=== PATIENT | female | born 1960 | race Caucasian/White ===

== ENCOUNTER → 2021-04-24 11:27 | Outpatient (CLI) | payer OTHER, SELFPAY ==
--- NOTE | ~2021-04-24 | CT_ITS ---
EXAMINATION: CT cervical spine wo [facility] EXAM DATE: 04/24/2021 11:43 INDICATION: Radiculopathy, cervical region, Spondylolysis. TECHNIQUE: Spiral CT of the cervical spine was performed without contrast. Axial images were reviewe d. Coronal and sagittal reformatted images cervical spine were also reviewed. The dose-length produc t (DLP) for this examination was 259.23 mGy-cm. The exposure was tailored according to patient size (auto mA exposure control), and iterative reconstruction (ASIR) was used as additional dose reduction technique. There is no prior study for comparison. FINDINGS: The C4-6 vertebral bodies and facet joints are fused. There is moderate to severe disc dis ease at C6-7, mild to moderate at C4-5 with 2 mm anterolisthesis. There are no acute fractures identi fied. The odontoid process is intact. The lateral masses of C1 line up with C2. Prevertebral soft ti ssue and pre-dens space are within normal limits. Level by level evaluation: C2-C3: There is a mild diffuse disc bulge. Uncovertebral joint arthropathy: Mild to moderate right, mild left. Facet joint arthropathy: Bulky but fused right, mild to moderate left. Neural foraminal stenosis: Mild to moderate right. Central canal stenosis: No stenosis. C3-C4: There is a mild diffuse disc bulge. Uncovertebral joint arthropathy: Moderate left, mild to moderate right. Facet joint arthropathy: Severe left, mild to moderate right. Neural foraminal stenosis: Severe left, mild to moderate right. Central canal stenosis: Mild. C4-C5: This level is fused. Uncovertebral joint arthropathy: Fused. Facet joint arthropathy: Fused. Neural foraminal stenosis: Moderate left. Central canal stenosis: No stenosis. C5-C6: This level is fused. Uncovertebral joint arthropathy: Fused. Facet joint arthropathy: Fused. Neural foraminal stenosis: No stenosis. Central canal stenosis: No stenosis. C6-C7: There is a moderate diffuse disc bulge. Uncovertebral joint arthropathy: Moderate to severe left, moderate right. Facet joint arthropathy: Mild to moderate bilateral. Neural foraminal stenosis: Moderate to severe left, mild to moderate right. Central canal stenosis: Probably mild to moderate. C7-T1: There is a mild diffuse disc bulge. Uncovertebral joint arthropathy: Mild. Facet joint arthropathy: Moderate to severe bilateral. Neural foraminal stenosis: Mild bilateral. Central canal stenosis: No stenosis. IMPRESSION: 1. C4-6 fusion. 2. C3-4 severe left neural foraminal stenosis. 3. Less spondylosis other levels. Reviewed, dictated and finalized at location B. US GRINDER
== END ==
PROVIDERS: PCP Internal Medicine Gastroenterology
DX: M43.02 Spondylolysis, cervical region (principal); Z98.1 Arthrodesis status; M47.22 Other spondylosis with radiculopathy, cervical region
CPT/HCPCS: 72125

== ENCOUNTER 2022-04-05 10:49 | Outpatient (CLI) | payer OTHER, SELFPAY ==
[2022-04-05 11:57] LABS: Basophils Absolute Auto 0.1 K/mm3 (0.0-0.1); Basophils Percent Auto 0.6 % (0.2-1.2); Eosinophils Absolute Auto 0.1 K/mm3 (0-0.3); Eosinophils Percent Auto 0.9 % (0-4.4); Hemoglobin 14.4 g/dL (12.0-15.0); Immature Granulocyte Absolute 0.02 K/mm3 (0.00-0.031); Immature Granulocyte Percent A 0.2 % (0-0.5); Lymphocytes Percent Auto 26.1 % (18.3-44.2); Mean Corpuscular HGB Conc 33.5 g/dl (32-36); Mean Corpuscular Hemoglobin 28.6 pg (26-34); Mean Corpuscular Volume 85.3 fl (80-100); Mean Platelet Volume 9.9 fl (7.4-10.4); Monocytes Absolute Auto 0.5 K/mm3 (0.1-0.6); Monocytes Percent Auto 6.2 % (2.6-8.5); Neutrophils Absolute Auto 5.3 K/mm3 (1.3-6.7); Platelet Count Result 281 k/mm3 (150-375); Red Blood Count 5.04 M/mm3 (4.2-5.4); Red Cell Distribution Width 12.6 % (11.5-14.5); White Blood Count 8.1 K/mm3 (4.5-10.0)
[2022-04-05 12:09] LABS: Hemoglobin A1C 5.5 % (<5.7)
[2022-04-05 12:12] LABS: Alanine Aminotransferase 30 U/L (6-35); Albumin Level 4.8 g/dL (3.5-5.1); Alkaline Phosphatase 92 U/L (38-126); Anion Gap 13 mmol/L (8-16); Aspartate Amino Transferase 28 U/L (14-36); Bilirubin,Total 1.2 mg/dL (0.2-1.3); Blood Urea Nitrogen 11 mg/dL (7-17); Calcium 9.7 mg/dL (8.4-10.2); Carbon Dioxide 25 mmol/L (22-30); Chloride 101 mmol/L (98-107); Cholesterol 243 mg/dL (0-200); Estimated Glomerular Filt Rate > 60; Glucose 93 mg/dL (65-110); HDL Direct 60 mg/dL; Potassium 5.1 mmol/L (3.4-5.0); Sodium 139 mmol/L (137-145); Triglycerides 107 mg/dL (<150)
[2022-04-05 12:21] LABS: NT Pro B Type Natriuretic Pept 169 pg/mL (5-100)
[2022-04-05 12:23] LABS: LDL Cholesterol Direct 140 mg/dL
[2022-04-05 12:36] LABS: Free T4 Free Thyroxine 2.09 ng/mL (0.78-2.19)
[2022-04-05 12:42] LABS: Thyroid Stimulating Hormone < 0.015 uIU/mL (0.465-4.680)
== END 2022-04-05 10:50 | disposition home or self-care (01) ==
LOC: ANHLAB 10:51
PROVIDERS: PCP Emergency Medicine; Visit Provider Emergency Medicine
DX: I10 Essential (primary) hypertension (principal); E03.9 Hypothyroidism, unspecified; E66.9 Obesity, unspecified; R60.0 Localized edema; Z87.448 Personal history of other diseases of urinary system
CPT/HCPCS: 36415; 80053; 80061; 83036; 83880; 84439; 84443; 85025

== ENCOUNTER 2022-04-08 12:53 | Outpatient (CLI) | payer OTHER, SELFPAY ==
[2022-04-08 15:51] LABS: Creatinine Urine 141.9 mg/dL
[2022-04-08 15:54] LABS: MALB Creatinine Ratio 6.9 mg/g (0-30); Microalbumin Urine Random 9.8 mg/L (0-16.7)
[2022-04-08 21:43] LABS: Appearance Urine Slightly Cloudy (Clear); Bilirubin Urine Negative (Negative); Blood Urine Negative (Negative); Color Urine Yellow (Yellow); Glucose Urine UA Negative (Negative); Ketones Urine Negative (Negative); Leukocyte Esterase Ur Negative LEU/UL (Negative); Nitrate Urine Negative (Negative); Protein Urine Negative (Negative); Specific Grav Ur 1.025 (1.001-1.035); Urobilinogen Urine 0.2 mg/dL (<2.0)
[2022-04-08 21:45] LABS: Add Urine Microscopic? NO
== END 2022-04-08 12:54 | disposition home or self-care (01) ==
PROVIDERS: PCP Emergency Medicine; Visit Provider Emergency Medicine
DX: R80.9 Proteinuria, unspecified (principal)
CPT/HCPCS: 81003; 82043

== ENCOUNTER 2022-04-16 11:33 | Outpatient (CLI) | payer OTHER, SELFPAY ==
--- NOTE | ~2022-04-16 | US_ITS ---
EXAMINATION:US venous doppler LE BI INDICATION:Localized edema TECHNIQUE: Multiple grayscale, color flow and Doppler images of the bilateral lower extremity deep ve nous systems were obtained and reviewed. COMPARISON:No prior studies for comparison. FINDINGS: The common femoral, superficial femoral and popliteal veins demonstrate normal respiratory variation, augmentation and compressibility. Color flow is also seen within the posterior tibial, pe roneal, greater saphenous and profunda veins. IMPRESSION: 1: No lower extremity deep venous thrombosis. Reviewed, dictated and finalized at location A. ER OPERATOR
== END 2022-04-16 11:34 | disposition home or self-care (01) ==
PROVIDERS: PCP Emergency Medicine; Visit Provider Emergency Medicine
DX: R60.0 Localized edema (principal)
CPT/HCPCS: 93970

== ENCOUNTER 2022-04-19 13:47 | Outpatient (CLI) | payer OTHER, SELFPAY ==
[2022-04-19 14:53] LABS: Influenza A QL RT-PCR Negative (Negative); Influenza B QL RT-PCR Negative (Negative); RSV RNA, RT-PCR Negative (Negative); SARS-CoV-2 RNA PCR Negative
== END 2022-04-19 13:48 | disposition home or self-care (01) ==
LOC: ANHLAB 13:48
PROVIDERS: PCP Emergency Medicine; Visit Provider Emergency Medicine
DX: J11.1 Influenza due to unidentified influenza virus with other respiratory manifestations (principal); Z20.822 Contact with and (suspected) exposure to COVID-19
CPT/HCPCS: 87637

== ENCOUNTER 2022-10-21 08:13 | Outpatient (CLI) | payer OTHER, MEDICAID, SELFPAY ==
[2022-10-21 08:37] LABS: Anion Gap 6 mmol/L (8-16); Blood Urea Nitrogen 20 mg/dL (7-17); Carbon Dioxide 30 mmol/L (22-30); Chloride 103 mmol/L (98-107); Estimated Glomerular Filt Rate 56; Glucose 89 mg/dL (65-110); Potassium 3.8 mmol/L (3.4-5.0); Sodium 139 mmol/L (137-145)
[2022-10-21 09:07] LABS: Thyroid Stimulating Hormone < 0.015 uIU/mL (0.465-4.680)
[2022-10-21 09:44] LABS: Free T4 Free Thyroxine 1.81 ng/mL (0.78-2.19)
== END 2022-10-21 08:14 | disposition home or self-care (01) ==
LOC: ANHLAB 08:14
PROVIDERS: PCP Emergency Medicine; Visit Provider Emergency Medicine
DX: E87.5 Hyperkalemia (principal); E03.9 Hypothyroidism, unspecified
CPT/HCPCS: 36415; 80048; 84439; 84443

== ENCOUNTER 2023-01-15 09:43 | Outpatient (CLI) | payer OTHER, SELFPAY ==
[2023-01-15 10:44] LABS: Free T4 Free Thyroxine 1.32 ng/mL (0.78-2.19)
== END 2023-01-15 09:44 | disposition home or self-care (01) ==
PROVIDERS: PCP Emergency Medicine; Visit Provider Emergency Medicine
DX: E03.9 Hypothyroidism, unspecified (principal)
CPT/HCPCS: 36415; 84439; 84443; 84480

== ENCOUNTER 2023-08-25 10:43 | Outpatient (CLI) | payer OTHER, SELFPAY ==
[2023-08-25 13:48] LABS: Basophils Absolute Auto 0.1 K/mm3 (0.0-0.1); Basophils Percent Auto 0.8 % (0.2-1.2); Eosinophils Absolute Auto 0.2 K/mm3 (0-0.3); Eosinophils Percent Auto 1.9 % (0-4.4); Hematocrit 41.1 % (37.0-47.0); Hemoglobin 13.3 g/dL (12.0-15.0); Immature Granulocyte Absolute 0.02 K/mm3 (0.00-0.031); Immature Granulocyte Percent A 0.3 % (0-0.5); Lymphocytes Absolute Auto 2.04 K/mm3 (0.9-3.2); Lymphocytes Percent Auto 25.9 % (18.3-44.2); Mean Corpuscular HGB Conc 32.4 g/dl (32-36); Mean Corpuscular Hemoglobin 29.3 pg (26-34); Mean Corpuscular Volume 90.5 fl (80-100); Mean Platelet Volume 10.3 fl (7.4-10.4); Monocytes Absolute Auto 0.5 K/mm3 (0.1-0.6); Monocytes Percent Auto 6.7 % (2.6-8.5); Neutrophils Absolute Auto 5.1 K/mm3 (1.3-6.7); Neutrophils Percent Auto 64.4 % (45.5-73.1); Platelet Count Result 254 k/mm3 (150-375); Red Blood Count 4.54 M/mm3 (4.2-5.4); Red Cell Distribution Width 12.4 % (11.5-14.5); White Blood Count 7.9 K/mm3 (4.5-10.0)
[2023-08-25 14:11] LABS: Alanine Aminotransferase 23 U/L (6-35); Albumin Level 4.8 g/dL (3.5-5.1); Alkaline Phosphatase 82 U/L (38-126); Anion Gap 4 mmol/L (4-12); Aspartate Amino Transferase 44 U/L (14-36); Bilirubin,Total 1.2 mg/dL (0.2-1.3); Blood Urea Nitrogen 13 mg/dL (7-17); Calcium 9.7 mg/dL (8.4-10.2); Carbon Dioxide 28 mmol/L (22-30); Chloride 104 mmol/L (98-107); Cholesterol 237 mg/dL (0-200); Estimated Glomerular Filt Rate > 60; Glucose 101 mg/dL (65-110); HDL Direct 45 mg/dL; Potassium 4.8 mmol/L (3.4-5.0); Sodium 136 mmol/L (137-145); Triglycerides 173 mg/dL (<150)
[2023-08-25 14:22] LABS: LDL Cholesterol Direct 163 mg/dL
[2023-08-25 19:03] LABS: Appearance Urine Clear (Clear); Bilirubin Urine Negative (Negative); Blood Urine Negative (Negative); Color Urine Yellow (Yellow); Glucose Urine UA Negative (Negative); Ketones Urine Negative (Negative); Leukocyte Esterase Ur Negative LEU/UL (Negative); Nitrate Urine Negative (Negative); Protein Urine Negative (Negative); Specific Grav Ur 1.026 (1.001-1.035); pH Urine 5.5 (5.0-9.0)
[2023-08-25 19:10] LABS: Add Urine Microscopic? NO
[2023-08-25 19:23] LABS: Free T4 Free Thyroxine 1.32 ng/mL (0.78-2.19)
== END 2023-08-25 10:44 | disposition home or self-care (01) ==
PROVIDERS: PCP Emergency Medicine; Visit Provider Emergency Medicine
DX: E66.9 Obesity, unspecified (principal); G25.81 Restless legs syndrome; E03.9 Hypothyroidism, unspecified; I10 Essential (primary) hypertension; Z13.1 Encounter for screening for diabetes mellitus; R10.9 Unspecified abdominal pain
CPT/HCPCS: 36415; 80053; 80061; 81003; 82728; 83036; 84439; 84443; 85025

== ENCOUNTER 2023-09-15 10:42 | Outpatient (CLI) | payer OTHER, SELFPAY ==
--- NOTE | ~2023-09-15 | US_ITS ---
Renal-Bladder ultrasound Clinical History: Abdominal pain Technique: Real-time sonographic imaging of the kidneys and urinary bladder was performed. Findings: The right kidney measures 9.5 cm in length and the left kidney measures 9.5 cm. There is no hydronephrosis or renal calculus identified. Renal cortical echogenicity is within normal limits. No renal mass lesion is identified. The urinary bladder is collapsed, limiting evaluation. Impression: Unremarkable ultrasound of the kidneys. Collapsed urinary bladder limits evaluation. Reviewed, dictated and finalized at location M. Impression: Unremarkable ultrasound of the kidneys. Collapsed urinary bladder limits evalua tion.
== END 2023-09-15 10:43 ==
LOC: GOSHIMG 10:43
PROVIDERS: PCP Emergency Medicine; Visit Provider Emergency Medicine
DX: R10.9 Unspecified abdominal pain (principal)
CPT/HCPCS: 76775

== ENCOUNTER 2025-02-06 11:21 | Outpatient (CLI) | payer OTHER, SELFPAY ==
--- OUTSIDE RECORDS SUMMARY | 2024-08-02 19:00 | XMS_ITS | Continuity of Care Document ---
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 Name Role Phone Administrative, Provider Unavailable Unavail able Allergies, Adverse Reactions, Alerts Substance Reaction Status Criticality No Known Allergies Active No Inform ation Medications Medication Instructions Dosage Effective Dates (start - stop) Status Comments levothyroxine 25 mcg tablet take 1 tablet by oral route every day 25 MCG - Active losartan 25 mg tablet take 1 tablet by o ral route every day 25 MG - Active amlodipine 2.5 mg tablet take 1 tablet b y oral route every day 2.5 MG - Active rosuvastatin 5 mg tablet take 1 tablet b y oral route every day 5 MG - Active gabapentin 300 mg capsule take 1 capsule by oral route 3 times every day 300 MG - Active cyclobenzaprine 5 mg tablet take 1 tablet by oral route 3 times every day 5 MG - Active [place] 5 mg-325 mg tablet take 1 tablet b y oral route every 6 hours as needed for pain - Active Procedures Procedure Date Medical Record Copy Medical Record Copy Per Page Medical Record Copy Medical Record Copy Per Page X-ray exam Cervical 4 Or 5 Views 2023 Independent Medical Examination JÚNIOR Pre Payment Advance Directives Directive Yes / No Effective Date File Name No Information Encounters Encounter Description Practice Location Reason(s) For Visit Diagnoses Date Provider Providers Copied on Encounter [facility], [address] [place] [address], [address] [place] [address], tel:[phone] [facility] No Information 5 Administrative Provider. [address] [place] [address], [address] [place] [address], . tel:[phone] [facility], [address] [place] [address], [id number], tel:[phone] [facility] No Information Administrative Provider. [address] [place] [address], [address] [place] [address], . tel:[phone] Independent Medical Examination JÚNIOR [facility], [address] [place] [address], [address] [place] [address], tel:[phone] [facility] JÚNIOR (chief complaint) Cervicalgia 4 Gerard Orourke. [facility] [address], [address] [place] [address], . tel:[phone] [facility], [address] [place] [address], [id number], tel:[phone] [facility] No Information 4 Gerard Orourke. [address] [place] [address], [address] [place] [address], . tel:[phone] Family History Family Member Type Diagnosis Age At Onset Father Problem (finding) Diabetes Father Problem (finding) Stroke Father Problem (finding) Hypertension Father Problem (finding) Cancer, unknown Mother Problem (finding) Cancer, unknown Father Problem (finding) Heart Disease Mother Problem (finding) Seizures Immunizations Vaccine Date Status Comments Pneumo (2 yrs or older)(PPV) not administered Note: declined ; Arina rce: Source Unspecified influenza, injectable, quadrivalent, (3 years or older) not administered Note: declined ; Arina rce: Source Unspecified Payers Payer name Insurance type Covered republican ID Authoriza tion(s) No Information Social History Type Description Quantity Date Captured Comments Sex Female Smoking Status No Information Chief Complaint And Reason For Visit No Information Reason For Referral Reason For Referral No Information Plan Of Treatment Date Type Action Status Referral Ordered: X-ray exam Cervical 4 Or 5 Views spine, cervical ordered History Of Present Illness Encounter Date Complaint History Of Prese nt Illness JÚNIOR Pillai comes into the office for an JÚNIOR. Functional Status Date Functional Assessmen t No Information Instructions Date Instruction Additional Infor mation No Information Assessments Type Assessment Date No Information Patient Care Teams Name Effective Dates (start - stop) Status Members No Information
--- OUTSIDE RECORDS SUMMARY | 2025-02-06 12:03 | XMS_ITS | Clinical Summary ---
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 This disclosure is being madepursuant to the Care Everywhere program and may not contain all information available regarding this patient. Last updated 18.[facility] Allergies Active Allergy Reactions Criticality Noted Date Comments Lisinopril Cough High 10/23/2008 Medications * Be aware that medications may not be up to date on this document. Alwaysverify current medications with the patient. cyclobenzaprine (FLEXERIL) 10 MG tablet Take 1 Tab by mouth 3 times daily as needed for Muscle Spasms. 90 Tab 5 3 Active hydrocodone-ifrah taminophen (NORCO) 5-325 MG tablet Take 1 Tab by mouth 2 times daily as needed for Pain. 60 Tab 0 3 Active Additional Information Patient taking differently:1 tablet Oral 2 TIMES DAILY PRN, Pain,10-325 mg tablet, Reported on 04/13/2022 levothyroxine (SYNTHROID) 137 MCG tablet Take 1 Tab by mouth daily before breakfast. 30 Tab 11 3 Active Additional Information Patient taking differently: 125 mcgOral DAILY BEFORE BREAKFAST, Reported on 04/13/2022 lisinopril-hydr ochlorothiazide (PRINZIDE; ZESTORETIC) 20-12.5 MG tablet Take 1 Tab by mouth once daily. 90 Tab 0 3 Active amLODIPine (Norvasc) 5 MG tablet Take 1 (one) tablet by mouth once daily 2 Active vitamin D, ergocalciferol, (Drisdol) 1.25 MG (05265 UT) capsule 2 Active gabapentin (Neurontin) 300 MG capsule TAKE 1 CAPSULE BY MOUTH EVERYDAY AT BEDTIME 2 Active losartan (Cozaar) 100 MG tablet Take 1 (one) tablet by mouth once daily 2 Active levothyroxine (Synthroid) 125 MCG tablet TAKE 1 TABLET BY MOUTH EVERY DAY. MUST GET LABS DONE FOR FUTHER REFILLS 3 Active losartan (Cozaar) 50 MG tablet Take 1 (one) tablet by mouth once daily 2 Active Active Problems Problem Noted Date Diagnosed Date Restless legs syndrome (RLS) 07/02/2011 Neck pain 07/02/2011 Hyperlipidemia 10/23/2008 Hypothyroidism 10/22/2008 HTN (hypertension) 10/22/2008 Allergic rhinitis 10/22/2008 Immunizations Immunization Administration Dates Next Due Influenza Pf Intradermal (ADULT) 02/15/2013 TDAP (7yrs+) 10/13/2011 Family History Medical History Relation Name Comments None Known Brother None Known Father None Known Maternal Aunt None Known Maternal Grandfather None Known Maternal Grandmother None Known Maternal Uncle None Known Mother None Known Other None Known Paternal Aunt None Known Paternal Grandfather None Known Paternal Grandmother None Known Paternal Uncle None Known Sister Asthma Neg Hx CVA Neg Hx Cancer - Breast Neg Hx Cancer - Other Neg Hx Cancer - Skin, Melanoma Neg Hx Cancer - Skin, Non Melanoma Neg Hx Eczema Neg Hx Hemophilia Neg Hx Psoriasis Neg Hx Relation Name Status Comments Brother Father Maternal Aunt Maternal Grandfather Maternal Grandmother Maternal Uncle Mother Other Paternal Aunt Paternal Grandfather Paternal Grandmother Paternal Uncle Sister Social History Tobacco Use Types Packs/Day Years Used Date Smoking Tobacco: Never Smokeless Tobacco: Never Tobacco Cessation:Counseling Given: Yes Alcohol Use Standard Drinks/Week Comments No 0 (1 standard drink = 0.6 oz pur e alcohol) Comments No Sex and Gender Information Value Date Recorded Sex Assigned at Not on file Legal Sex Female 6:04 AM 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 Gender Identity Not on file Sexual Orientation Not on file Last Filed Vital Signs Vital Sign Reading Time Taken Comments Blood Pressure 125/74 06/01/2022 3:09 PM 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 Pulse 77 06/01/2022 3:09 PM 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 Temperature 36.2 C (97.2 F) 06/01/2022 3:09 PM 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 Respiratory Rate 16 06/01/2022 3:09 PM 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 Oxygen Saturation 96% 06/01/2022 3:09 PM 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 Inhaled Oxygen Concentration - - Weight 91.2 kg (201 lb) 09/24/2022 10:49 AM CDT Height 162.6 cm (5' 4) 09/24/2022 10:49 AM CDT Body Mass Index 34.5 09/24/2022 10:49 AM CDT Plan of Treatment Health Maintenance Due Date Last Done Comments COLOGUARD (AGES 45-75) - COLON CA SCREENING 1961 COLON MONITORING 1961 COLONOSCOPY - COLON CA SCREENING 1961 CT COLONOGRAPHY - COLON CA SCREENING 1961 Colorectal Cancer Screening 1961 FIT - COLON CA SCREENING 1961 FLEX SIG - COLON CA SCREENING 1961 MAMMOGRAM 1961 HIV SCREENING 1976 HEPATITIS C SCREENING 06/11/1979 PAP SMEAR 1982 PNEUMOCOCCAL VACCINE 50+ (1 of 1 - PCV) 2011 ZOSTER VACCINE (1 of 2) 2011 LIPID TESTING 07/02/2016 07/02/2011, 05/09, 10/23/2008, Additional history exists DTAP/TDAP/TD VACCINES (2 - Td or Tdap) 10/12/2021 10/13/2011 SCREENING FOR DIABETES 04/13/2022 2, 07/02/2011, 05/27/2010, Additional history exists DEPRESSION SCREENING 05/09/2024 COVID-19 VACCINE (1 - season) 2025 INFLUENZA VACCINE (#1) 2025 02/15/2013 Respiratory Syncytial Virus (RSV) Vaccine Pt: or over 60 yrs (1 - 1-dose 75+ series) 2036 HEPATITIS B VACCINE Aged Out No longe r eligible based on patient's age to complete this topic HIB VACCINE Aged Out No longer eligi ble based on patient's age to complete this topic HPV VACCINE Aged Out No longer eligi ble based on patient's age to complete this topic MENINGOCOCCAL (Group B) VACCINE SHARED DECISION-MAKING Aged Out No longer eligible based on patient's age to complete this topic MENINGOCOCCAL GROUPS A/C/Y/W VACCINE Aged Out No longer eligible based on patient's age to complete this topic Procedures Procedure Name Priority Date/Time Associated Diagnosis Comments BASIC METABOLIC PANEL (CALCIUM TOTAL) Routine 08/09/2011 11:37 AM CDT HTN (hypertension) LIPID PROFILE Routine 07/02/2011 9:56 AM 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 Screening for unspecified condition from Last 3 Months or Most Recently Relevant to Health Maintenance Results * BASIC METABOLIC PANEL (CALCIUM TOTAL) (08/09/2011 11:37 AM CDT) Glucose 85 65 - 99 mg/dL [facility] Comment: Fasting reference interval BUN 9 7 - 25 mg/dL [facility] Creatinine 0.97 0.50 - 1.05 mg/dL [facility] Comment: For patients >49 years of age, the reference limit for Creatinine is approximately 13% higher for people identified as -Bhutanese. eGFR by MDRD 68 > OR = 60 mL/min/1 .73m2 [facility] eGFR by MDRD 79 > OR = 60 mL/min/1 .73m2 [facility] BUN/Creatinine Ratio NOT APPLICABLE 6 - 22 (calc) [facility] Sodium 142 135 - 146 mmol/L [facility] Potassium 4.3 3.5 - 5.3 mmol/L [facility] Chloride 106 98 - 110 mmol/L [facility] CO2 28 21 - 33 mmol/L [facility] Calcium 9.1 8.6 - 10.4 mg/dL [facility] Comment: Test Performed at: [facility] [address] [place] [address] GIANNI MORALES DO,MPH Blood specimen (specimen) BLOOD SPECIMEN / Unknown 08/09/2011 11:37 AM CDT 08/09/2011 11:40 AM CDT Keyon Farrell DO LAB - CHEMISTRY ORDERABLES Fi nal Result [facility] [address] [place] [address] * LIPID PROFILE (LIPID PANEL) (07/02/2011 9:56 AM 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) Cholesterol 108 100 - 199 mg/dL [facility] ACCOUNT BILL Triglycerides 60 0 - 149 mg/dL [facility] ACCOUNT BILL HDL Cholesterol 47 >39 mg/dL [facility] ACCOUNT BILL Comment: According to ATP-III Guidelines, HDL-C >59 mg/dL is considered a negative risk factor for CHD. VLDL Calculated 12 5 - 40 mg/dL [facility] ACCOUNT BILL LDL Calculated 49 0 - 99 mg/dL [facility] ACCOUNT BILL Blood specimen (specimen) BLOOD SPECIMEN / Unknown 07/02/2011 9:56 AM 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 07/02/2011 6:22 PM 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 Narrative Resulting Agency Comment [facility] [address] [place] [address] [id number] Keyon Farrell DO LAB - CHEMISTRY ORDERABLES nal Result [facility] ACCOUNT BILL [address] [place] [address] from Last 3 Months or Most Recently Relevant to Health Maintenance Insurance MEDICAID - OUT OF STATE AETNA MEDICAID - [place] AETNA
[2025-02-06 13:00] LABS: Hematocrit 40.8 % (37.0-47.0); Hemoglobin 13.5 g/dL (12.0-15.0); Immature Granulocyte Percent A 0.3 % (0-0.5); Lymphocytes Absolute Auto 2.44 K/mm3 (0.9-3.2); Mean Corpuscular HGB Conc 33.1 g/dl (32-36); Mean Corpuscular Hemoglobin 29.7 pg (26-34); Mean Corpuscular Volume 89.7 fl (80-100); Nucleated Red Blood Cells Absolute Auto 0.000 K/mm3 (0.0-0.012); Nucleated Red Blood Cells Perc 0.0 % (0.0-0.2); Platelet Count Result 248 k/mm3 (150-375); Red Blood Count 4.55 M/mm3 (4.2-5.4); White Blood Count 6.8 K/mm3 (4.5-10.0)
[2025-02-06 13:34] LABS: Alanine Aminotransferase 22 U/L (6-35); Albumin Level 4.8 g/dL (3.5-5.1); Alkaline Phosphatase 88 U/L (38-126); Anion Gap 10 mmol/L (4-12); Aspartate Amino Transferase 51 U/L (14-36); Bilirubin,Total 1.3 mg/dL (0.2-1.3); Blood Urea Nitrogen 8 mg/dL (7-17); Calcium 9.6 mg/dL (8.4-10.2); Carbon Dioxide 27 mmol/L (22-30); Chloride 102 mmol/L (98-107); Cholesterol 182 mg/dL (0-200); Estimated Glomerular Filt Rate > 60; Glucose 101 mg/dL (65-110); HDL Direct 60 mg/dL; Potassium 4.5 mmol/L (3.4-5.0); Sodium 139 mmol/L (137-145); Total Protein 8.0 g/dL (6.3-8.2); Triglycerides 94 mg/dL (<150)
[2025-02-06 13:49] LABS: HIV 1/2 Ab P24 Ag Result Negative (Negative)
[2025-02-06 14:02] LABS: Syphilis IgG/IgM Antibody Non-Reactive (Nonreactive)
[2025-02-06 14:09] LABS: Thyroid Stimulating Hormone 0.110 uIU/mL (0.465-4.680)
[2025-02-06 14:29] LABS: Vitamin B12 383.0 pg/mL (239-931)
[2025-02-08 16:08] LABS: ANA by IFA Rfx Titer/Pattern Negative (.)
== END 2025-02-06 11:22 | disposition home or self-care (01) ==
LOC: ANHGOSHLAB 11:22
PROVIDERS: PCP Family Medicine; Visit Provider Family Medicine
DX: Z29.81 Encounter for HIV pre-exposure prophylaxis (principal); R41.3 Other amnesia; E78.5 Hyperlipidemia, unspecified; E03.9 Hypothyroidism, unspecified; Z11.4 Encounter for screening for human immunodeficiency virus [HIV]
CPT/HCPCS: 36415; 80053; 80061; 82607; 84443; 85025; 86038; 86593; 86703; G0432